=== PATIENT | female | born 1975 | race American Indian/Alaskan Native ===

== ENCOUNTER 2020-04-18 05:58 | Emergency (ER) | payer OTHER ==
[~2020-04-18] VITALS: Ht 172.7 cm; Wt 90.7 kg
[~2020-04-18 05:58] MED LIST: ACETAMINOPHEN; AMIT10 PO; BUPR150T2; BUTALBITAL; CAFFEINE; CYCL10 PO; DIAZ5; DIPH50 PO; ESTR.625; FLUO20; GABA300; HYDACE10B PO; HYDACE5 PO; IBUP800; IBUP800 PO; LEVFLO500 PO; METPRE4DP PO; NAPR220 PO; NAPR500 PO; NAPR550 PO; OXYACE10; OXYACE5T; OXYACE5T PO; OXYC20ER PO; PROM25; PROM25 PO; RANI150; RANI150 PO; SERT100 PO; [UNRECOGNIZED DRUG - OTHER]
[2020-04-18] MEDS ORDERED: PRED20 PO (07:04)
[2020-04-18] MEDS ORDERED: AZIT250 PO (07:04)
[2020-04-18] MEDS ORDERED: ALBU90OI INH (07:12)
== END 2020-04-18 07:29 | disposition home or self-care (01) ==
LOC: ER 05:58
DX: J98.01 Acute bronchospasm (principal); F17.210 Nicotine dependence, cigarettes, uncomplicated; Z91.041 Radiographic dye allergy status; Z88.8 Allergy status to other drugs, medicaments and biological substances
CPT/HCPCS: 36415; 71045; 93005; 93010; 94640; 96374; 99284-25; J2930

== ENCOUNTER 2020-08-30 07:28 | Day surgery (SDC) | payer OTHER ==
[~2020-08-30] VITALS: Ht 172.7 cm; Wt 98.0 kg
[~2020-08-30 07:28] MED LIST changes: +ALBU90OI INH; +AZIT250 PO; +PRED20 PO
--- NOTE | 2020-08-30 08:04 | NUR ---
History, Chart, Medications and Allergies reviewed before start of procedure. Patient States Post-Procedure ride home has been arranged. Patient confirms NPO status and agrees with scheduled EGD.
[2020-08-30] MEDS ORDERED: SUCR1 PO (08:13)
[2020-08-30] MEDS ORDERED: OMEP20ER PO (08:13)
[2020-08-30] MEDS ORDERED: FLUT1DIS2 INH (08:15)
--- NOTE | 2020-08-30 08:33 | NUR ---
08/30/20 0833 Mary Castro History, Chart, Medications and Allergies reviewed before start of procedure. Patient confirms NPO status and agrees with scheduled surgery. PATIENT DETERMINED TO BE ASA APPROPRIATE FOR PROPOFOL SEDATION PRIOR TO START OF PROCEDURE BY . 3-LEAD EKG REVIEWED WITH PHYSICIAN PRIOR TO START OF PROCEDURE. MONITOR INTACT WITH CONTINUOUS PULSE OXIMETRY AND INTERMITTENT BP. SUPPLEMENTAL O2 TO BE TITRATED THROUGHOUT PROCEDURE TO MAINTAIN O2 SATURATION ABOVE 90%.
--- NOTE | 2020-08-30 09:05 | NUR ---
REPORT FROM FREYA HARMAN RN. DR HODGE SPOKE TO PATIENT AND TOLD HER TO KEEP HER FOLLOW UP.
--- NOTE | 2020-08-30 09:25 | NUR ---
Patient up to Ambulate independently. Gait steady. Discharge instructions reviewed with patient. Patient verbalizes understanding. Copy given to patient to take home. Patient States Post-Procedure ride home has been arranged. Discharged via wheelchair to private car for ride home. ALL BELONINGS SENT HOME WITH PATIENT.
== END 2020-08-30 22:37 | disposition home or self-care (01) ==
LOC: ORSCMMR 07:28 → ORD 08:30 → ORSCMMR 08:30
PROVIDERS: Internal Medicine Gastroenterology
PROC: 0DB68ZX Excision of Stomach, Via Natural or Artificial Opening Endoscopic, Diagnostic (ICD-10-PCS; principal; 2020-08-30 08:30)
PROC: 0DB98ZX Excision of Duodenum, Via Natural or Artificial Opening Endoscopic, Diagnostic (ICD-10-PCS; principal; 2020-08-30 08:30)
PROC: 0DB48ZX Excision of Esophagogastric Junction, Via Natural or Artificial Opening Endoscopic, Diagnostic (ICD-10-PCS; principal; 2020-08-30 08:30)
DX: R10.13 Epigastric pain (principal); J45.909 Unspecified asthma, uncomplicated; K21.9 Gastro-esophageal reflux disease without esophagitis; K44.9 Diaphragmatic hernia without obstruction or gangrene; Z79.899 Other long term (current) drug therapy
CPT/HCPCS: 88305; 88342; A9270; J2704; J7120

== ENCOUNTER 2022-11-04 06:55 | Emergency (ER) | payer OTHER ==
[~2022-11-04] VITALS: Ht 172.7 cm; Wt 99.8 kg
[~2022-11-04 06:55] MED LIST changes: +FLUT1DIS2 INH; +OMEP20ER PO; +SUCR1 PO
[2022-11-04 07:17] VITALS: BP 119/80
== END 2022-11-04 08:45 | disposition home or self-care (01) ==
LOC: ER 06:55
DX: T14.8XXA Other injury of unspecified body region, initial encounter (principal); F17.210 Nicotine dependence, cigarettes, uncomplicated; Z88.8 Allergy status to other drugs, medicaments and biological substances; X50.1XXA Overexertion from prolonged static or awkward postures, initial encounter
CPT/HCPCS: 71046; J1885